=== PATIENT | female | born 1975 | race Caucasian/White ===

== ENCOUNTER 2020-06-09 12:12 | Day surgery (SDC) | payer OTHER ==
[~2020-06-09] VITALS: Ht 157.5 cm; Wt 99.4 kg
[~2020-06-09 12:12] MED LIST: BUPIVACAINE/PF 0.5% ONE; CHOL500015 PO; DEXAMETHASONE 4 MG/ML, 5ML ONE; EPINEPHRINE 1 MG/ML, 1ML ONE; FENO145T19 PO; LEVO5TAB29 PO; METF500T17 PO; OMEG1CAP23 PO; SPIR50TA4 PO
[2020-06-09] MEDS ORDERED: LACTATED RINGERS 1,000 ML IV SCH (12:51)
[2020-06-09] MEDS ORDERED: CHLORHEXIDINE 15 ML UDC ONE (12:54)
[2020-06-09] MEDS ORDERED: LIDOCAINE-MPF 1%, 2ML ONE (12:54)
[2020-06-09 12:56] VITALS: BP 137/83
[2020-06-09] MEDS ORDERED: LIDOCAINE-MPF 1%, 2ML INFIL ONE (13:00)
[2020-06-09] MEDS ORDERED: CHLORHEXIDINE 15 ML UDC MM ONE (13:00)
[2020-06-09 13:15] LABS: HCG UR SG 1.009 (1.003-1.030)
[2020-06-09 13:27] LABS: ALANINE AMINOTRANSFERASE 67 U/L (12-78); ALBUMIN 4.7 g/dL (3.4-5.0); ANION GAP 7 mmol/L (5-15); CALCIUM 9.5 mg/dL (8.5-10.1); CHLORIDE 106 mmol/L (98-107); CREATININE 0.79 mg/dL (0.55-1.02)
[2020-06-09 13:30] LABS: ALKALINE PHOSPHATASE 42 U/L (45-117); BILIRUBIN,TOTAL 0.6 mg/dL (0.2-1.0); TOTAL PROTEIN 8.3 g/dL (6.4-8.2)
[2020-06-09] MEDS ORDERED: LIDOCAINE 1%, 20ML ONE ×2 (13:44→14:36)
[2020-06-09] MEDS ORDERED: PROPOFOL 10 MG/ML, 20ML ONE (14:20)
[2020-06-09] MEDS ORDERED: CEFAZOLIN 1,000 MG ONE (14:20)
[2020-06-09] MEDS ORDERED: SUCCINYLCHOLINE 20 MG/ML, 10ML ONE (14:20)
[2020-06-09] MEDS ORDERED: ROCURONIUM 10 MG/ML,10ML ONE (14:20)
[2020-06-09] MEDS ORDERED: MIDAZOLAM 1 MG/ML, 2ML ONE (14:27)
[2020-06-09] MEDS ORDERED: BUPIVACAINE/PF 0.5% ONE (14:36)
[2020-06-09] MEDS ORDERED: EPINEPHRINE 1 MG/ML, 1ML ONE (14:36)
[2020-06-09] MEDS ORDERED: HYDROmorphone 1 MG/ML, 1ML INJ IVPush PRN (15:30)
[2020-06-09] MEDS ORDERED: FENTANYL PF 100 MCG/2ML IV PRN (15:30)
[2020-06-09] MEDS ORDERED: ACETAMINOPHEN 325 MG TABLET PO PRN (15:30)
[2020-06-09] MEDS ORDERED: hydrALAzine 20 MG/ML, 1ML IV PRN (15:30)
[2020-06-09] MEDS ORDERED: ONDANSETRON 2MG/ML, 2ML IVPush PRN (15:30)
[2020-06-09] MEDS ORDERED: MEPERIDINE/PF 25MG/0.5ML IVPush PRN (15:30)
[2020-06-09] MEDS ORDERED: PROMETHAZINE 25 MG/ML, 1ML IVPush PRN (15:30)
[2020-06-09] MEDS ORDERED: OXYcodone 5 MG/5 ML ORAL.SOL UDC PO PRN (15:30)
== END 2020-06-09 16:45 | disposition home or self-care (01) ==
LOC: OUT 12:12
PROVIDERS: ATTEND Podiatrist Foot & Ankle Surgery
DX: M19.072 Primary osteoarthritis, left ankle and foot (principal); Z11.59 Encounter for screening for other viral diseases; M25.775 Osteophyte, left foot; E66.01 Morbid (severe) obesity due to excess calories; Z68.34 Body mass index [BMI] 34.0-34.9, adult; Z79.84 Long term (current) use of oral hypoglycemic drugs; Z79.899 Other long term (current) drug therapy
CPT/HCPCS: 28289; 36415; 80053; 81025; 87635; J0171; J0330; J0690; J2250; J2704; J1100